=== PATIENT | female | born 1935 | race Caucasian/White ===

== ENCOUNTER 2016-08-18 16:40 | Emergency (ER) | payer MEDICARE, OTHER ==
[~2016-08-18] VITALS: Ht 170.2 cm; Wt 80.0 kg
[~2016-08-18 16:40] MED LIST: CALC-187 PO; ERGO50000 PO; LEVO50IN PO; LISI-357 PO; PARO10TA PO; ROPI1TAB72 PO
[2016-08-18 16:50] VITALS: BP 184/78; PULSE 93; RESP 17; TEMP 98.6
--- NOTE | 2016-08-18 17:35 | PD ---
HPI Chief Complaint: Medical Clearance Time Seen by Provider: 17:02 Travel History International Travel<30 days: No Contact w/Intl Traveler<30days: No Traveled to known affect area: No History of Present Illness HPI 80-year-old female complains of feeling flushing and hot flashes and dehydration. Patient states that she was out of the sun this afternoon doing the swing. Patient started feeling hot flashes flushing and dehydrated. EMS was called. Patient was brought to the ED for evaluation. Patient states that his she feeling much better now. Patient denies any headache. Patient denies any chest pain or shortness of breath. Patient denies abdominal pain. Patient denies any focal weakness or numbness of extremity. PFSH Past Medical History Anxiety: Yes Cardiovascular Problems: Yes (PT HAS "LOOP RECORDER" NOW, [employer], SEES DR VELIZ) Cerebrovascular Accident: Yes Diabetes: Yes Patient Takes Glucophage: Yes Diminished Hearing: No Gastrointestinal Disorders: Yes (CHRONIC DIARRHEA/ CONSTIPATION, PUNCTURED BOWEL DURING COLONOSCOPY) Genitourinary: No Hypertension: Yes Musculoskeletal: No Neurologic: Yes (RLS) Respiratory: No Thyroid Disease: Yes Menopausal: Yes Past Surgical History Abdominal Surgery: Yes (HERNIA) Cholecystectomy: Yes Other Surgery: Yes Social History Alcohol Use: No Tobacco Use: No Substance Use: No Allergies-Medications (Allergen,Severity, Reaction): Coded Allergies: Cipro (Unverified Allergy, Severe, 06/22/15) Keflex (Verified Allergy, Severe, 06/22/15) Morphine (Unverified Allergy, Severe, 06/22/15) Penicillin (Verified Allergy, Severe, 06/22/15) Sulfa (Verified Allergy, Unknown, 06/22/15) Vancomycin (Verified Allergy, Unknown, Itching, 06/22/15) Reported Meds & Prescriptions Reported Meds & Active Scripts Active Review of Systems General / Constitutional: No: Fever Eyes: No: Visual changes HENT: No: Headaches Cardiovascular: No: Chest Pain or Discomfort Respiratory: No: Shortness of Breath Gastrointestinal: No: Abdominal Pain Genitourinary: No: Dysuria Musculoskeletal: No: Pain Skin: No Rash Neurologic: No: Weakness Psychiatric: No: Depression Endocrine: No: Polydipsia Hematologic/Lymphatic: No: Easy Bruising Physical Exam Narrative GENERAL: Well-nourished, well-developed patient. SKIN: Focused skin assessment warm/dry. HEAD: Normocephalic. EYES: No scleral icterus. No injection or drainage. NECK: Supple, trachea midline. No JVD or lymphadenopathy. CARDIOVASCULAR: Regular rate and rhythm without murmurs, gallops, or rubs. RESPIRATORY: Breath sounds equal bilaterally. No accessory muscle use. GASTROINTESTINAL: Abdomen soft, non-tender, nondistended. MUSCULOSKELETAL: No cyanosis, or edema. BACK: Nontender without obvious deformity. No CVA tenderness. Neurologic exam normal. Data Data Last Documented VS Vital Signs Date Time Temp Pulse Resp B/P Pulse Ox O2 Delivery O2 Flow Rate FiO2 08/18/16 16:50 93 08/18/16 16:50 98.6 17 184/78 MDM Medical Decision Making Medical Screen Exam Complete: Yes Emergency Medical Condition: Yes Differential Diagnosis Differential diagnosis including heat exhaustion, his stroke. Narrative Course 80-year-old female was brought in for hot flashings, flushing, feeling dehydrated. Patient was outside in the sun. Patient's feeling much better now. Patient was given by mouth fluid in the emergency room. Diagnosis Primary Impression: Heat exhaustion Qualified Code: T67.5XXA - Heat exhaustion, initial encounter Patient Instructions: General Instructions Additional Instructions: Encourage by mouth fluid. Stay out of the sun. Follow-up with personal physician. Return as needed. Med/Other Pt SpecificInfo: No Change to Meds Disposition: 01 DISCHARGE HOME Condition: Stable Stalin Pineda MD Aug 18, 2016 17:35
[2016-08-18 18:10] VITALS: BP 150/73
== END 2016-08-18 18:21 | disposition home or self-care (01) ==
LOC: NEPC 16:40
DX: T67.5XXA Heat exhaustion, unspecified, initial encounter (principal); E86.0 Dehydration; F41.9 Anxiety disorder, unspecified; E11.9 Type 2 diabetes mellitus without complications; I10 Essential (primary) hypertension; G25.81 Restless legs syndrome; E07.9 Disorder of thyroid, unspecified; X30.XXXA Exposure to excessive natural heat, initial encounter; Z86.73 Personal history of transient ischemic attack (TIA), and cerebral infarction without residual deficits
CPT/HCPCS: 99283